=== PATIENT | female | born 1975 | race Caucasian/White ===

== ENCOUNTER 2024-10-03 06:47 | Outpatient (CLI) | payer MEDICAID ==
[~2024-10-03 06:47] MED LIST: GADOTERATE MEGLUMINE 7.5 MMOL/15 ML VIAL IV ONE; LIDOcaine 1% 30ml preserv. free vial ONE; LIDOcaine 1%/PF 5ML 10 MG/ML VIAL ONE; iohexol 300 MG/1 ML 50ml polymer ONE
--- NOTE | 2024-10-03 07:54 | RADIOLOGY REPORT ---
C-ARM FLUOROSCOPY: PROCEDURE: Right hip injection FLUOROSCOPY TIME: 0.1 minute DAP: 3 mgy FINDINGS: Spot intraoperative C arm radiographs demonstrating right hip injection. IMPRESSION: Please refer to surgical report for detailed findings.
== END 2024-10-03 23:59 | disposition home or self-care (01) ==
LOC: MRI 06:47
PROVIDERS: ATTEND Family Medicine Sports Medicine
DX: M25.551 Pain in right hip (principal); M70.61 Trochanteric bursitis, right hip; M70.62 Trochanteric bursitis, left hip; M21.061 Valgus deformity, not elsewhere classified, right knee
CPT/HCPCS: 27093; 77002; A9575; J2003; J3490; Q9967